=== PATIENT | female | born 1945 | race Caucasian/White ===

== ENCOUNTER 2016-06-02 08:59 | Emergency (ER) | payer OTHER ==
--- NOTE | 2016-06-02 10:03 | PROVIDER DOCUMENTATION ---
HPI-Head Injury - General Chief Complaint: Fall Stated Complaint: FALL Time Seen by Provider: 06/02/16 09:12 Source: patient, family Allergies/Adverse Reactions: Patient Allergies Allergy/AdvReac Type Severity Reaction Status Date / Time No Known Allergies Allergy Verified 06/02/16 09:28 Home Medications: Home Medication List Medication Instructions Recorded Confirmed Last Taken Type Amoxicillin [Amoxil] 500 mg PO BID #14 capsule 06/02/16 Unknown Rx - History of Present Illness-Head Injury Nature of Presenting Problem: 70 y/o WF c/o fall with head injury x 1 hour. Pt states she tripped on something while she was walking and lost her balance. States most of the impact was to her forehead. Denies LOC. Denies any other injury. States epistaxis on L>R nare. Denies any N/V, vision changes, new neck or back pain. No numbness/tingling. Review of Systems - Adult - REVIEW OF SYSTEMS - ADULT Constitutional: reports: no symptoms reported. denies: chills, fever Eyes: reports: no symptoms reported. denies: blurred vision, double vision Ears, Nose, Mouth & Throat: reports: see HPI, epistaxis, nose pain. denies: tinnitus, throat pain Cardiovascular: reports: no symptoms reported. denies: chest pain, palpitations Respiratory: reports: no symptoms reported. denies: dyspnea on exertion, shortness of breath Gastrointestinal: reports: no symptoms reported. denies: nausea, vomiting Genitourinary: reports: no symptoms reported. denies: dysuria, frequency Musculoskeletal: reports: no symptoms reported. denies: joint pain, joint swelling Integumentary: reports: no symptoms reported. denies: nail changes, rash Neurological: reports: see HPI, headache/migraines. denies: numbness, paresthesia Psychiatric: reports: no symptoms reported Endocrine: reports: no symptoms reported. denies: cold intolerance, heat intolerance Hematologic/Lymphatic: reports: no symptoms reported. denies: easy bruising, prolonged bleeding Allergic/Immunologic: reports: no symptoms reported All Other Systems: Reviewed and Negative Past History - Adult - PAST MEDICAL HISTORY-ADULT Review of Records: reports: Nursing Assessment Review, Medications Reviewed - SOCIAL HISTORY Living Situation: family Physical Exam- Neurological - Physical Exam-Neuro Initial Vital Signs Reviewed: Yes General Appearance: alert, mild distress Eye Exam: bilateral eye: normal inspection, PERRL, EOMI HENMT: moist mucous membranes. negative: normocephalic/atraumatic (0.75 superficial lac to nose, hematoma noted to central forehead), maxillary tenderness Head Injury: lacerations (as noted), other (as noted). negative: no evidence of injury, active bleeding Neck: supple, normal inspection. 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 negative: aphasia, EOM palsy, facial droop, focal weakness, motor weakness, sensory deficit Integumentary: normal color, normal turgor, warm/dry, laceration(s) (as noted above) Psych/Mental Status: normal mood/affect, normal thought content, normal thought process, oriented x 3 Progress - PLAN OF CARE/RESULTS Progress/Plan/Lab Results: Discussed pt with Dr. Chavarria; states amoxicillin due to laceration and nasal fx. - CT/MRI 1 CT Study: Facial Bones Impression: See EMR Report (minimally displaced nasal fx, otherwise neg -per Dr. Tirado) 2 CT Study: Cervical Spine, Head Impression: See EMR Report (scalp hematoma, otherwise NAD -per Dr. Tirado) Departure - Departure Time of Disposition Order: 09:59 DIAGNOSIS: Laceration, Hematoma, Epistaxis Fall Qualifiers: Encounter type: initial encounter Qualified Code(s): W19.XXXA - Unspecified fall, initial encounter Nasal bone fracture Qualifiers: Encounter type: initial encounter Fracture type: closed Qualified Code(s): S02.2XXA - Fracture of nasal bones, initial encounter for closed fracture Disposition: HOME 01 Certified Medical Emergency: Emergent Condition: Stable Additional Instructions: Take medications as directed. Tylenol for headache. Ice to area as needed. Follow up with specialist for further management. ED Follow Up Instructions: You have been treated by a care provider in the Emergency Department. These instructions are being provided to you so you can have an understanding of how to care for yourself upon discharge. Upon discharge from the Emergency Department, you are responsible for making arrangements for follow-up care by a physician of your choice. Take all prescribed medications as directed. Return to the Emergency Department immediately for any new or worsening symptoms. You may call the Physician Referral phone number at [phone] to obtain a list of Physicians who are taking new patients. Prescriptions: Amoxicillin [Amoxil] 500 mg PO BID #14 capsule Referrals: Christopher Alston MD [Primary Care Provider] - Ricardo Shah MD [STAFF PHYSICIAN] - Attestation - Physician/ ALICIA Attestation Patient care was provided by Advanced Practice Provider:: Yes Advanced Practice Provider:: Ashley Perry Advanced Practice Provider documentation review:: The Mid-level provider documentation, treatment plan and medical decision making was reviewed by the physician who agrees with all treatment and medical decision making by the MLP.
[2016-06-02] MEDS ORDERED: TYLENOL PO ONE (10:16)
[2016-06-02 10:24] VITALS: BP 126/71
--- NOTE | 2016-06-02 10:33 | Diag Imaging Result Document ---
PROCEDURE NAME: FACIAL BONES W/O CONTRAST - 06/02/2016 CT OF THE FACIAL BONES: FINDINGS: There is slight deformity of the nasal bones particularly the right which suggests minimally displaced fractures. There is mild soft tissue swelling associated with this. The paranasal sinuses are clear. The mandible appears to be intact. The soft tissue hematoma in the scalp over the mid frontal region is again noted. No underlying bony abnormalities are present. The infundibula are patent. IMPRESSION: Minimal distal nasal bone fractures.
--- NOTE | 2016-06-02 10:33 | Diag Imaging Result Document ---
PROCEDURE NAME: HEAD/C-SPINE W/O CONTRAST - 06/02/2016 CT OF THE HEAD WITHOUT CONTRAST: FINDINGS: There is no evidence of intracranial bleed, mass effect, or abnormal extra-axial fluid collection. The paranasal sinuses, as seen, are clear. There is a subcutaneous hematoma over the forehead in the midline. Some calcifications are seen in the basal ganglia bilaterally. There are no previous studies. IMPRESSION: No evidence of acute intracranial disease. Soft tissue hematoma as described. CT OF THE CERVICAL SPINE: FINDINGS: There has been laminectomy from the C3 level through C6 with posterolateral rods on both sides and anterior fusion with bone plate and screws at C6-7. There are large bridging anterior osteophytes at C2-3 and C3-4. There is no evidence of acute fracture or subluxation. No previous CT examinations are available for comparison. There is, however, a previous MRI of cervical spine dated 10/21/2014 which was evidently before the laminectomy. Otherwise, the findings are similar. IMPRESSION: Postsurgical changes. No evidence of acute bony disease.
== END 2016-06-02 11:02 | disposition home or self-care (01) ==
LOC: ED 08:59
DX: S02.2XXA Fracture of nasal bones, initial encounter for closed fracture (principal); S01.21XA Laceration without foreign body of nose, initial encounter; S00.33XA Contusion of nose, initial encounter; R04.0 Epistaxis; J34.89 Other specified disorders of nose and nasal sinuses; W18.09XA Striking against other object with subsequent fall, initial encounter; R51 Headache; S09.90XA Unspecified injury of head, initial encounter
CPT/HCPCS: 70450; 70486; 72125